=== PATIENT | female | born 1960 | race Caucasian/White ===

== ENCOUNTER → 2017-07-13 | Outpatient (CLI) | payer OTHER ==
--- NOTE | 2017-07-13 16:07 | CPEKG ---
Heart Rate: 73 RR Interval: 822 P-R Interval: 120 QRSD Interval: 74 QT Interval: 404 QTC Interval: 446 P [place]: 56 QRS [place]: 85 T Wave [place]: 54 EKG Severity - NORMAL ECG - EKG Impression: SINUS RHYTHM Electronically Signed By: Fletcher Villanueva 14-Jul-2017 15:29:02
== END ==
LOC: FCP 15:49
DX: Z01.818 Encounter for other preprocedural examination (principal)

== ENCOUNTER 2018-08-08 14:27 | Emergency (ER) | payer OTHER | END 2018-08-08 17:25 | disposition home or self-care (01) ==